=== PATIENT | male | born 1935 | race Caucasian/White ===

== ENCOUNTER → 2020-12-21 | Day surgery (SDC) | payer MEDICARE ==
[~2020-12-21] VITALS: Ht 193 cm; Wt 80.0 kg
[~2020-12-21] MED LIST: ESOM20CA PO; HYDR50TA9 PO; IV RINGERS,LACTATED 1000ML 1,000 ML IV ONE; LIDOCAINE 1%/EPI 1:100,000 20 ML VIAL. INJ ONE; LIDOCAINE 1%/EPI 1:100,000 20 ML VIAL. ONE
[2020-12-21 11:06] VITALS: BP 147/78
--- NOTE | 2020-12-21 12:26 | PDOC4 ---
Operative Note Operative Note Date: December 212020 at 1224 Preoperative diagnosis: Scalp mass Postoperative diagnosis: Same Specimen: Scalp mass Surgeon: Samir Dictation: Patient is 85-year-old male with complaints of a mass that is been enlarging on his scalp has drained several times. Procedure of excision of mass was explained to the patient detail was benefits were also discussed including bleeding infection alternatives to this procedure also discussed with the patien t who seemed to understand and gave a verbal written consent to have the procedure performed. Patient was placed in the supine position in the minors room his scalp was prepped and draped usual sterile fashion using ChloraPrep. Area around the mass was injected with 1% lidocaine with epinephrine once this is anesthetized and incision over the mass was made superior to be a sebaceous cyst and the cyst capsule was removed previously had spontaneously drained there is no more sebum within the cyst. The mass was 4 cm removed with no margin and the incision was 5 cm long. Wound was closed in a single layer 4-0 subcuticular Monocryl Mastisol Steri-Strips and island dressing were applied. Patient tolerated procedure well was discharged home in stable condition all sponge instrument needle counts listed as correct estimated blood loss less than 5 mL PHUONG SUMMERS MD Dec 21, 2020 12:26
--- NOTE | 2020-12-21 12:28 | DISCH ---
DISCHARGE INSTRUCTIONS Condition on Discharge Condition on Discharge: Stable Activity After Discharge Activity Instructions for Disc: Resume previous activity Diet after Discharge Diet after Discharge: Regular Wound Incision Care Other wound/incision instructi: Kiersten shower in 24 hours Contacting the [facility] after DC Call your doctor for: If your condition worsens Follow-Up Follow up with: Dr. Summers in 2 weeks PHUONG SUMMERS MD Dec 21, 2020 12:28
--- NOTE | 2020-12-25 18:06 | PATHOLOGY ---
[facility] Accession Number: [id number] . 01 Material submitted: . scalp - SCALP MASS . 01 Clinical history: . EXCISION OF SCALP MASS . 02 Diagnosis: Scalp mass excision: - Pilar cyst with focal acute inflammation. (JPM:bowen; 12/25/2020) [facility] 12/25/2020 0935 Local . 02 Comment: There is no evidence of malignancy. (JPM:bowen; 12/25/2020) . 02 Electronically signed: . Silvestre Rivera MD, Pathologist NPI- [id number] . 01 Gross description: . The specimen is received in formalin, labeled "Keith Morales", "scalp mass". Received are multiple fragments of a previously ruptured pale white possible cyst, measuring 3.2 x 3.1 x 0.4 cm in aggregate dimensions. No distinct solid masses or nodules are identified. [employer] sections are submitted in cassette A1.([facility]; 12/23/2020) [facility] 12/25/2020 0934 Local . 02 Pathologist provided ICD-10: L72.11 . 02 CPT . 579055 Specimen Comment: A courtesy copy of this report has been sent to [phone], [phone] Specimen Comment: [id number] Specimen Comment: Report sent to / DR ALFONSO Performed at: 01 [facility] [address], [place] [id number] MD Junior Kelly MD Phone: [phone] Performed at: 02 [facility] [address] [place], [place] [id number] MD Silvestre Rivera MD Phone: [phone]
== END | disposition home or self-care (01) ==
LOC: SURG 10:28
PROVIDERS: ATTEND Surgery
DX: R22.0 Localized swelling, mass and lump, head (principal); L72.11 Pilar cyst; I10 Essential (primary) hypertension; K21.9 Gastro-esophageal reflux disease without esophagitis; Z20.822 Contact with and (suspected) exposure to COVID-19; Z79.899 Other long term (current) drug therapy; Z98.890 Other specified postprocedural states
CPT/HCPCS: 11424; 87426; 88304; J3490